=== PATIENT | male | born 1975 | race Caucasian/White ===

== ENCOUNTER 2022-02-20 19:34 | Emergency (ER) | payer MEDICAID, OTHER ==
[~2022-02-20] VITALS: Ht 177.8 cm; Wt 113.4 kg
[2022-02-20 20:56] VITALS: BP 125/78
== END 2022-02-20 21:58 | disposition home or self-care (01) ==
LOC: ER 19:34
DX: S60.032A Contusion of left middle finger without damage to nail, initial encounter (principal); S60.012A Contusion of left thumb without damage to nail, initial encounter; S61.303A Unspecified open wound of left middle finger with damage to nail, initial encounter; V43.52XA Car driver injured in collision with other type car in traffic accident, initial encounter; Y93.89 Activity, other specified; Y92.488 Other paved roadways as the place of occurrence of the external cause; Y99.8 Other external cause status
CPT/HCPCS: 73130; 73630

== ENCOUNTER 2022-08-23 15:10 | Emergency (ER) | payer MEDICAID, OTHER ==
[~2022-08-23] VITALS: Ht 177.8 cm; Wt 115.0 kg
[2022-08-23] MEDS ORDERED: LIDOCAINE 1% HCL (LOCAL ANESTH.) INJ 20ML MDV ID ONE (22:15)
[2022-08-23] MEDS ORDERED: TETANUS-DIPTH-ACEL PERTUSSIS 0.5ML SYR Tdap IM ONE (22:15)
[2022-08-23] MEDS ORDERED: IBUP800T27 PO (22:36)
[2022-08-23] MEDS ORDERED: CEPH-510 PO (22:36)
[2022-08-23 22:43] VITALS: BP 149/94
== END 2022-08-23 22:44 | disposition home or self-care (01) ==
LOC: ER 15:15
DX: S61.411A Laceration without foreign body of right hand, initial encounter (principal); W18.39XA Other fall on same level, initial encounter; Y93.89 Activity, other specified; Y92.89 Other specified places as the place of occurrence of the external cause; Y99.8 Other external cause status
CPT/HCPCS: 12002; 90471; 90715; J2001